=== PATIENT | female | born 1995 | race Caucasian/White ===

== ENCOUNTER 2018-05-14 22:34 | Emergency (ER) | payer OTHER ==
[2018-05-14] MEDS ORDERED: LORazepam 2 MG/ML VIAL ONE (23:41)
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
== END 2018-05-15 01:16 | disposition home or self-care (01) ==
LOC: ER 22:34
DX: S00.01XA Abrasion of scalp, initial encounter (principal); W01.0XXA Fall on same level from slipping, tripping and stumbling without subsequent striking against object, initial encounter; Y92.009 Unspecified place in unspecified non-institutional (private) residence as the place of occurrence of the external cause; Z87.820 Personal history of traumatic brain injury
CPT/HCPCS: 70450; 96372; 99284

== ENCOUNTER 2022-12-15 15:18 | Emergency (ER) | payer OTHER ==
--- OUTSIDE RECORDS SUMMARY | 2022-12-15 15:22 | XMS REPORT | Continuity of Care Document ---
:[address] [facility] t Address [address] [place] [address]. [address] [place] [address] Care Team Providers Name Role Phone PCP, PATIENT DOES NOT HAVE A Primary Care Physician Unavaila Greg Silveira Attending Clinician Unavailable DOUG FUNK Attending Clinician Unavailable Doug Funk MD Attending Clinician JOSH MENDIOLA Attending Clinician Unavailable Doctor Unassigned, [place] Attending Clinician Unavailable Airam Patterson PT Attending Clinician Unavailable Josh Mendiola MD Attending Clinician Physician, No Primary or Family Admitting Clinician Gilberto triplett Payers Payer Name Policy Type Policy Number Effective Date Expiration Date Brad darinel [facility] STAR [id number] 2021 PLAN 00:00:00 [facility] STAR [id number] 2020 PLUS 00:00:00 [facility] [id number] 2016 HEALTH 00:00:00 Problems Condition Condition Condition Status Onset Resolution Last Treating Co mments Source Name Details Category Date Date Treatment Clinician Date 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 5-23 it y of 00:00: [place] [address] Medical Branch Cerebral Cerebral Disease Active Unive rs palsy, palsy, 5-23 ity of [place] [facility] [place] Urinary Urinary Disease Active Univers incontinen incontinen 07-07 it y of ce due to ce due to 00:00: s cognitive cognitive 00 Medi ruth impairment impairment Br anch 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 of 03-23 it y of brain brain 00:00: [place] 00 Medical Branch Epilepsy Epilepsy Disease Active Unive rs with with 08-17 [place]y of intract[place] epilepsy 00 Me dical Branch Aphasia Aphasia Disease Active Univers 203 ity of 00:00: [place] [address] Medical Branch Allergies, Adverse Reactions, Alerts Allergy Allergy Status Severity Reaction(s) Onset Inactive Treating Comm ents Source Name Type Date Date Clinician No Known DA Active U 2018-02 [facility] 00:[facility]: [facility] No Known DA Active U 2018-02 [facility] Allergie -[place] 00:[place]: [facility] NO KNOWN Drug Active Univers ALLERGIE Class ity of [facility] Social History Social Habit Start Date Stop Date Quantity Comments Source Tobacco use and 2017-04-19 2017-04-19 Never used [facility] y of [place] exposure 00:00:00 00:00:00 Medical Branch Sex Ass[birth year] At [birth year] [facility] [place] 00:00:00 00:00:00 [facility] Smoking Status Start Date Stop Date Source Never smoker [facility] Medications Ordered Filled Start Stop Current Ordering Indication Dosage Frequency Signature Comments Components Source Medication Medication Date Date Medication? Clinician (SIG) Name Name ALPRAZolam Yes 1mg Take 1 Unive rs 1 mg tablet 7-19 tablet by ity of 00:00: mouth at [place] [address] bedtime. Medical Branch ALPRAZolam Yes 2mg Take 2 Unive rs (XANAX) 1 7-19 tablets by ity of mg tablet 00:00: mouth at [facility] [place] [facility] 00 bedtime as Medical needed Branch (seizure). ALPRAZolam Yes 1mg Take 1 Unive rs 1 mg tablet 7-19 tablet by ity of 00:00: mouth at [place] [address] bedtime. Medical Branch ALPRAZolam Yes 2mg Take 2 Unive rs (XANAX) 1 7-19 tablets by [place] of [place] bed[place] Medical needed Branch (seizure). ALPRAZolam 2018-0 Yes 1mg Take 1 Unive rs 1 mg tablet 7-19 tablet by ity of 00:00: mouth at [place] 00 bedtime. Medical Branch ALPRAZolam 2018-0 Yes 2mg Take 2 Unive rs (XANAX) 1 7-19 tablets by [place] of [place] bed[place] Medical needed Branch (seizure). ALPRAZolam 2018-0 Yes 1mg Take 1 Unive rs 1 mg tablet 7-19 tablet by ity of 00:00: mouth at [place] 00 bedtime. Medical Branch ALPRAZolam 2018-0 Yes 2mg Take 2 Unive rs (XANAX) 1 7-19 tablets by [place] of mg [place] bed[place] as Medical needed Branch (seizure). diazePAM 2018-0 Yes 10mg Insert 10 Univ ers 5-7.5-10 mg 5-22 mg into ity o f rectal gel 00:00[place] 00 needed for Medical Other Branch (Seizures) . diazePAM 2018-0 Yes 10mg Insert 10 Univ ers 5-7.5-10 mg 5-22 mg into ity o f rectal gel 00:00[place] 00 needed for Medical Other Branch (Seizures) . diazePAM 2018-0 Yes 10mg Insert 10 Univ ers 5-7.5-10 mg 5-22 mg into ity o f rectal gel 00:00: [place] 00 needed for Medical Other Branch (Seizures) . diazePAM 2018-0 Yes 10mg Insert 10 Univ ers 5-7.5-10 mg 5-22 mg into ity o f rectal gel 00:00: [place] 00 needed for Medical Other Branch (Seizures) . cloBAZam 2018-0 Yes .5{tbl} Take 0.5 Un darrius (ONFI) 10 3-05 tablets by ity of mg Tab 00:00: mouth 2 (two) Medical times Branch daily. cloBAZam 2018-0 Yes .5{tbl} Take 0.5 Un darrius (ONFI) 10 3-05 tablets by ity of mg Tab 00:00: mouth 2 (two) Medical times Branch daily. cloBAZam 2018-0 Yes .5{tbl} Take 0.5 Un darrius (ONFI) 10 3-05 tablets by ity of mg Tab 00:00: mouth 2 (two) Medical times Branch daily. cloBAZam 2018-0 Yes .5{tbl} Take 0.5 Un darrius (ONFI) 10 3-05 tablets by ity of mg Tab 00:00: mouth 2 (two) Medical times Branch daily. chlorhexidi Yes SWISH WITH Univers ne 0.12 % 2-20 1/2 OUNCE ity o f mouthwash 00:00: FOR 30 [place] 00 SECONDS Medical TWICE A Branch DAY PREVIDENT Yes APPLY 1 Unive rs 5000 2-20 INCH STRIP ity of SENSITIVE 00:00: TO SOFT [place] 1.1-5 % 00 BRISTLE Medical Pste TOOTHBRUSH Branch , BRUSH THOROUGHLY FOR 1 MIN, SPIT, RINSE TWICE A DAY chlorhexidi Yes SWISH WITH Univers ne 0.12 % 2-20 1/2 OUNCE ity o f mouthwash 00:00: FOR 30 [place] 00 SECONDS Medical TWICE A Branch DAY PREVIDENT Yes APPLY 1 Unive rs 5000 2-20 INCH STRIP ity of SENSITIVE 00:00: TO SOFT [place] 1.1-5 % 00 BRISTLE Medical Pste TOOTHBRUSH Branch , BRUSH THOROUGHLY FOR 1 MIN, SPIT, RINSE TWICE A DAY chlorhexidi Yes SWISH WITH Univers ne 0.12 % 2-20 1/2 OUNCE ity o f mouthwash 00:00: FOR 30 [place] 00 SECONDS Medical TWICE A Branch DAY PREVIDENT Yes APPLY 1 Unive rs 5000 2-20 INCH STRIP ity of SENSITIVE 00:00: TO SOFT [place] 1.1-5 % 00 BRISTLE Medical Pste TOOTHBRUSH Branch , BRUSH THOROUGHLY FOR 1 MIN, SPIT, RINSE TWICE A DAY chlorhexidi Yes SWISH WITH Univers ne 0.12 % 2-20 1/2 OUNCE ity o f mouthwash 00:00: FOR 30 [place] 00 SECONDS Medical TWICE A Branch DAY PREVIDENT Yes APPLY 1 Unive rs 5000 2-20 INCH STRIP ity of SENSITIVE 00:00: TO SOFT [place] 1.1-5 % 00 BRISTLE Medical Pste TOOTHBRUSH Branch , BRUSH THOROUGHLY FOR 1 MIN, SPIT, RINSE TWICE A DAY CLONAZEPAM 2016-[address] [facility] ORAL 03-13 mouth. ity of 16:04: [place] [facility] CLONAZEPAM 2016-[address] [facility] ORAL 03-13 mouth. ity of 16:04: [place] [facility] CLONAZEPAM 2016-[address] [facility] ORAL 03-13 mouth. ity of 16:04: [place] [facility] CLONAZEPAM 2016-[address] [facility] ORAL 03-13 mouth. ity of 16:04: [place] [facility] [place] Procedures Procedure Date / Time Performed Performing Clinician Sourc e XR DXA BONE DENSITY 2021-12-26 13:59:00 Doug Funk [facility] STUDY Center REFERRAL- 2020-08-01 05:01:00 Doctor Unassigned, No [facility] [place] [facility]RESPONSE Name Medical Branch OP CLINIC 2020-03-27 06:01:00 Doctor Unassigned, No [facility] [place] [facility] NOTES/CONSULTS Name Medical Branch REFERRAL- 2020-03-13 06:01:00 Doctor Unassigned, No [facility] REQUEST/RESPONSE Name Medical Branch Plan of Care Planned Activity Planned Date Details Comments Source Future Scheduled 2031-09-19 DTAP/TDAP/TD VACCINES ([address] [facility] 00:00:00 - Td or Tdap) [code = Medica l Center DTAP/TDAP/TD VACCINES (7 - Td or Tdap)] Future Scheduled 2022-10-16 Influenza Vaccine (#1) [facility] 00:00:00 [code = Influenza Vaccine Oh dical Center (#1)] Future Scheduled 2022-02-[address] [facility] Test 00:00:00 (12+) [code = DEPRESSION Med ical Center SCREENING (12+)] Future Scheduled 2017 Screening for malignant [facility] Test 00:00:00 neoplasm of cervix Medical C enter (procedure) [code = 948958643] Future Scheduled 2014 HEPATITIS C SCREENING [facility] 00:00:00 [code = HEPATITIS C Medical Center SCREENING] Future Scheduled 2011-05-[address] [facility] 00:00:00 virus screening Medical Cent er (procedure) [code = 057457495] Future Scheduled [address] [facility] Test 00:00:00 Counseling and Screening [facility] (12+) [code = Tobacco Cessation Counseling and Screening (12+)] Future Scheduled 1996 COVID-19 VACCINE (#1) [facility] 00:00:00 [code = COVID-19 VACCINE [facility] (#1)] Encounters Start End Encounter Admission Attending Care Care Encounter Source Date/Time Date/Time Type Type Clinicians Facility Department ID 2023-01-15 2023-01-15 Outpatient Kamini [facility] [id number] [facility] 11:15:00 11:15:00 Greg Patric [facility] 2021-12-26 2021-12-26 Outpatient TONYA FUNK [facility] [id number] SLE 13:31:21 23:59:00 DOUG 2021-12-26 2021-12-26 [facility] [id number] 13:31:21 23:59:00 Encounter [facility] 2021-12-18 2021-12-18 [facility] [id number] 00:00:00 00:00:00 Only [facility] 2021-02-03 2021-02-03 [facility] [id number] [facility] 05:29:00 05:29:00 Greg 73 [facility] 2020-08-07 2020-08-07 [facility] [id number] Univers 10:40:00 10:40:00 JOSH beckwith [facility] 2020-08-01 2020-08-01 Orders Doctor CAMACHO [id number] Univers 00:00:00 00:00:00 Only UnassignedRAPHAEL [id number] ity of [place] [facility] [id number] [place] as [phone] [address] 2020-03-27 2020-03-27 Ancillary Airam Patterson [facility] 1 .[id number] Univers 14:27:29 15:14:41 Visit Josh Mendiola [id number] ity [facility] [id number] [place] [phone] [place] [address] 2020-03-27 2020-03-27 Outpatient Sebastiná MENDIOLA, [facility] [id number] [facility] 14:20:00 14:20:00 JOSH beckwith [facility] 2020-03-27 2020-03-27 Orders Doctor DOUG [id number] Univers 00:00:00 00:00:00 Only Unassigned, RAPHAEL [id number] ity of [place] [facility] [id number] [place] as [id number] [address] 2020-03-21 2020-03-21 Outpatient Sebastián MENDIOLA [facility] [id number] [facility] 14:00:00 14:00:00 JOSH beckwith [facility] 2020-03-13 2020-03-13 Orders Doctor DOUG [id number] 00:00:00 00:00:00 Only Unassigned, RAPHAEL [id number] [place] [facility] [id number] 2020-03-13 2020-03-13 Orders Doctor DOUG Baltazar.[id number] [facility] 00:00:00 00:00:00 Only Unassigned, RAPHAEL [id number] ity of [place] [facility] [id number] Brady as [phone] [address] Results Test Description Test Time Test Comments Results Result [facility] e Comments RAD, BONE DENSITY 2021-12-26 Release to STUDY 14:27:00 patient->Immedi [facility] is VERA VASQUEZ preferred?->Latia FIOR : airInsurance 1995 Sex: Company ID = [id number]; Insurance Company Name = *FINAL REPORT [facility]; EXAM: RAD, BONE Insurance DENSITY STUDY Company Phone History: Age-related Number = ; osteoporosisComparis Policy Number = on: None available [id number] DISCUSSION:Evaluatio n of the left hip and lumbar spine was performed utilizing DEXA Hologic bone densitometer. The study is technically adequate.The patient's fracture risk is compared to an age-matched control.The patient denies prior surgery/fracture of the spine, hips or forearm. Left hip femoral neck bone mineral density: 0.737 g/cm2, T-score is -1, Z-score is -1. Left hip total bone mineral density: 0.904 g/cm2, T-score is -0.3, Z-score is -0.3. Lumbar spine total bone mineral density: 1.064 gm/cm2, T-score is 0.2, Z-score is 0.2. IMPRESSION: Bone mineralization is within normal limits for age range (Z score greater than -2). Signed: Coreen Dillon Verified Date/Time: 12/26/2021 14:27:32 Reading Location: [facility] Reading Room [address] [place] [address] SERUM QUAL 2018-12-29 08:57:00 Test Item Value Reference Range Interpretation Comme nts HCG SERUM QUAL (test code = HCGQL) NEG SCREEN NEG HGB [id number] 08:48:00 Test Item Value Reference Range Interpretation Comments RED BLOOD CELL (test code = RBC) 4.86 M/mm3 3.8-5.5 N HEMOGLOBIN (test code = HGB) 14.0 G/DL 10.6-15.8 N HEMATOCRIT (test code = HCT) 42.8 % 31.8-47.4 N MEAN CELL VOLUME (test code = MCV) 88.1 fL 80.1-101.1 N
--- NOTE | 2022-12-15 17:25 | ER ---
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 Coronavirus screen: At this time, the client does not indicate any symptoms associated with coronavirus-19. Ebola Screen: No symptoms or risks identified at this time. Initial Sepsis Screen: Does the patient meet any 2 criteria? No. Patient's initial sepsis screen is negative. Does the patient have a suspected source of infection? No. Patient's initial sepsis screen is negative. Risk Assessment: Do you want to hurt yourself or someone else? Patient reports no desire to harm self or others. Onset of symptoms was December 15, 2022. 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 - Social history:: Smoking status: Patient denies any tobacco usage or history of. Screenin:48 [facility] ED Fall Risk Assessment (Adult) History of falling in the last 3 months, mb9 including since admission Yes- single mechanical fall (1 pt) Confusion or Disorientation Yes (5 pts) Intoxicated or Sedated No (0 pts) Impaired Gait Yes (1 pt) Mobility Assist Device Used Yes (1 pt) Altered Elimination No (0 pt) Score/Fall Risk Level 3 or more points = High Risk Oriented to surroundings, Maintained a safe environment, Educated pt \T\ family on fall prevention, incl call for assistance when getting out of bed. Abuse screen: Denies threats or abuse. Nutritional screening: No deficits noted. Tuberculosis screening: No symptoms or risk factors identified. Assessment: 15:47 General: Appears in no apparent distress. Behavior is calm, cooperative. Pain: Unable mb9 to use pain scale. Does not appear to understand pain scale. Neuro: Rodriguez Agitation-Sedation Scale (RASS): 0 - Alert and Calm Level of Consciousness is awake, Oriented to Appropriate for age. Cardiovascular: Patient's skin is warm and dry. Respiratory: Airway is patent Respiratory effort is even, unlabored, Respiratory pattern is regular, symmetrical. GI: Abdomen is round non-distended, Bowel sounds present X 4 quads. : No signs and/or symptoms were reported regarding the genitourinary system. EENT: No signs and/or symptoms were reported regarding the EENT system. Derm: Skin is normal. Derm: Bruising that is dark purple, on right elbow. Musculoskeletal: Range of motion: limited in right elbow. 16:46 Reassessment: No changes from previously documented assessment. Patient and/or family mb9 updated on plan of care and expected duration. Pain level reassessed. Patient is alert, oriented x 3, equal unlabored respirations, skin warm/dry/pink. Vital Signs: 15:35 BP 126 / 78; Pulse 86; Resp 16; Temp 98.2(TE); Pulse Ox 98% on R/A; Weight 50.8 kg; hb Height 4 ft. 11 in. ; Pain 0/10; 15:35 Body Mass Index 22.62 (50.80 kg, 149.86 cm) hb 15:35 Pain Scale: Non-Verbal hb ED Course: 15:25 Patient arrived in ED. hb 15:26 Bekah Landin FNP-C [facility] snw 15:26 Herb Restrepo MD is Attending Physician. snw 15:27 Chuyita Teran RN is Primary Nurse. mb9 15:27 Arm band placed on. mb9 15:37 Triage completed. hb 15:48 Placed in gown. Bed in low position. Call light in reach. Side rails up X 1. Client mb9 placed on continuous cardiac and pulse oximetry monitoring. NIBP monitoring applied. 15:48 No provider procedures requiring assistance completed. mb9 16:58 Elbow Right 2 View In Process Unspecified. EDMS 16:59 Hand Right 2 View In Process Unspecified. EDMS 17:56 Patient did not have IV access during this emergency room visit. mb9 Administered Medications: No medications were administered Medication: 15:48 VIS not applicable for this client. mb9 Outcome: 17:25 Discharge ordered by MD. ballesteros 17:56 Discharged to home via wheelchair, with family, roxanne 17:56 Condition: stable 17:56 Discharge instructions given to patient, family, Instructed on discharge instructions, follow up and referral plans. Demonstrated understanding of instructions, follow-up care, 17:56 Patient left the ED. mb9 Signatures: Dispatcher [employer] EDBekah Tamayo, BILINGUAL KINDERGARTEN TEACHER-C BILINGUAL KINDERGARTEN TEACHER-Csnw Laina Johansen, RN RN Chuyita Teran RN RN mb9
--- NOTE | 2022-12-15 17:25 | EDPHYS ---
Physician Documentation [facility] Name: Harini Rai Age: 27 yrs Sex: Female : 1995 Arrival Date: 12/15/2022 Time: 15:18 Bed 19 Private MD: ED Physician Herb Restrepo HPI: 12/15 15:45 This 27 yrs old Female presents to ER via Wheelchair with complaints of seizure snw resulting in contusion to right elbow. 15:45 The patient or guardian complains of injury. The complaints affect the right elbow. snw Context: The problem was sustained at home, resulted from fall with seizure. Onset: The symptoms/episode began/occurred acutely. Associated signs and symptoms: Pertinent positives: contusion to right elbow. The patient has experienced similar episodes in the past. The patient has been recently seen by a physician: with different complaint(s), increased Zoloft dose today before seizure. 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 - Social history:: Smoking status: Patient denies any tobacco usage or history of. ROS: 15:40 Eyes: Negative for injury, pain, redness, and discharge, ENT: Negative for injury, snw pain, and discharge, Neck: Negative for injury, pain, and swelling, Cardiovascular: Negative for chest pain, palpitations, and edema, Respiratory: Negative for shortness of breath, cough, wheezing, and pleuritic chest pain, Abdomen/GI: Negative for abdominal pain, nausea, vomiting, diarrhea, and constipation, Back: Negative for injury and pain, : Negative for injury, bleeding, discharge, and swelling, Skin: Negative for injury, rash, and discoloration, Neuro: Negative for headache, weakness, numbness, tingling, and seizure, Psych: Negative for depression, anxiety, suicide ideation, homicidal ideation, and hallucinations, 15:40 Constitutional: Positive for change in med today, hx of seizures. Pt had seizure today and struck right elbow., 15:40 MS/extremity: Positive for injury or acute deformity, decreased range of motion, pain, swelling, of the right elbow, Exam: 15:40 Head/Face: Normocephalic, atraumatic. snw 15:40 Chest/axilla: Normal chest wall appearance and motion. Nontender with no deformity. No lesions are appreciated. Cardiovascular: Regular rate and rhythm with a normal S1 and S2. No gallops, murmurs, or rubs. Normal PMI, no JVD. No pulse deficits. Respiratory: Lungs have equal breath sounds bilaterally, clear to auscultation and percussion. No rales, rhonchi or wheezes noted. No increased work of breathing, no retractions or nasal flaring. Abdomen/GI: Soft, non-tender, with normal bowel sounds. No distension or tympany. No guarding or rebound. No evidence of tenderness throughout. Back: No spinal tenderness. No costovertebral tenderness. Full range of motion. 15:40 Constitutional: The patient appears awake, Hx of TBI, seizure disorder, legally blind. Pt had seizure this am. Sitting belted in her wheelchair, left upper extremity with movement. Right upper ext contractured, + contusion to elbow, no laceration. 15:40 Musculoskeletal/extremity: ROM: right upper ext contractured, 15:40 Skin: Appearance: contusion to right elbow, elbow and wrist contractured, 15:40 Neuro: Motor: seizure activity, hx of disorder, last seizure this am. Pt assisted to stretcher, side rails up, seizure pads to rails. Mom at bedside, Vital Signs: 15:35 BP 126 / 78; Pulse 86; Resp 16; Temp 98.2(TE); Pulse Ox 98% on R/A; Weight 50.8 kg; hb Height 4 ft. 11 in. ; Pain 0/10; 15:35 Body Mass Index 22.62 (50.80 kg, 149.86 cm) hb 15:35 Pain Scale: Non-Verbal hb MDM: 15:27 Patient medically screened. snw 15:47 Differential diagnosis: closed fracture, contusion, abrasion. Data reviewed: vital snw signs, nurses notes, radiologic studies, plain films. Historians other than the Patient: Parent: Mom. Counseling: I had a detailed discussion with the patient and/or guardian regarding the historical points, exam findings, and any diagnostic results supporting the discharge/admit diagnosis, radiology results, the need for outpatient follow up, for definitive care, to return to the emergency department if symptoms worsen or persist or if there are any questions or concerns that arise at home. Special discussion: Based on the history and exam findings, there is no indication for further emergent testing or inpatient evaluation. I discussed with the patient/guardian the need to see the primary care provider for further evaluation of the symptoms. 16:36 ED course: attempting to x-ray elbow. snw 17:24 Independent interpretation of the following test(s) in the Emergency Department X-Ray: snw My interpretation is right elbow and right hand x ray negative for acute findings. 12/15 16:58 Order name: Elbow Right 2 View; Complete Time: 17:29 EDMS 12/15 16:59 Order name: Hand Right 2 View; Complete Time: 17:33 EDMS Administered Medications: No medications were administered Disposition Summary: 12/15/22 17:25 Discharge Ordered Notes: Location: Home snw Condition: Stable snw Diagnosis - Pain in right arm snw - Post traumatic seizures snw Followup: snw - With: Emergency Department - When: As needed - Reason: Worsening of condition Followup: snw - With: Private Physician - When: 1 week - Reason: Recheck today's complaints, Continuance of care, Re-evaluation by your physician Discharge Instructions: - Discharge Summary Sheet snw - Musculoskeletal Pain snw - How to Use Cold Therapy snw - Heat Therapy snw Forms: - Medication Reconciliation Form snw - Thank You Letter snw - Antibiotic Education snw - Prescription Opioid Use snw - Patient Portal Instructions snw - Leadership Thank You Letter snw Addendum: 12/18/2022 06:59 Co-signature as Attending Physician, Herb Restrepo MD I reviewed the patient's care r n provided by the Advanced Practice Provider and agree with the diagnosis and treatment plan. Signatures: Dispatcher [employer] EDGA Bekah Landin, [employer] Herb Restrepo MD MD rn Baxter, Heather, RN RN Corrections: (The following items were deleted from the chart) 12/15 16:58 15:32 Elbow Right 3 View+RAD.RAD.BRZ ordered. EDMS EDMS 16:59 16:48 Hand Right 3 View+RAD.RAD.BRZ ordered. EDMS EDMS
--- NOTE | 2022-12-15 17:27 | RAD REPORT ---
EXAM DESCRIPTION: RAD - Elbow Right 2 View - 12/15/2022 4:58 pm CLINICAL HISTORY: SMASH INJURY COMPARISON: No comparisons TECHNIQUE: Right elbow, single-view. FINDINGS: Lateral view only of the elbow was obtained due to patient's condition. No fracture is mary beth ntified. No elevated fat pad to suggest an effusion. There is no dislocation or periosteal reaction noted. No foreign body or other soft tissue abnormalit y. IMPRESSION: Negative right elbow examination.
--- NOTE | 2022-12-15 17:29 | RAD REPORT ---
EXAM DESCRIPTION: RAD - Hand Right 2 View - 12/15/2022 4:58 pm CLINICAL HISTORY: SMASH INJURY COMPARISON: No comparisons TECHNIQUE: Right hand, 2 views. FINDINGS: Limited examination due to patient's in positioning on the provided views. No fracture is identified. There is no dislocation or periosteal reaction noted. No foreign body or other soft tissue abnormalit y. IMPRESSION: Negative right hand examination.
[2022-12-15 19:18] VITALS: BP 126/78; TEMP 98.2; O2SAT 98
== END 2022-12-15 17:56 | disposition home or self-care (01) ==
LOC: ER 15:18
DX: R56.1 Post traumatic seizures (principal); M79.601 Pain in right arm
CPT/HCPCS: 99283